=== PATIENT | female | born 1965 | race African-American/Black ===

== ENCOUNTER 2022-01-08 04:38 | Day surgery (SDC) | payer OTHER ==
[2022-01-04 19:18] VITALS: BMI 24.7
[2022-01-08] MEDS ORDERED: LIDOCAINE HCL 2% (20ML MULTI-DOSE VIAL) ONE ×2 (07:13→08:38)
[2022-01-08] MEDS ORDERED: BUPIVACAINE HCL/PF 0.5% (5MG/ML) 10 ML VIAL ONE (07:14)
[2022-01-08] MEDS ORDERED: DEXAMETHASONE SOD PHOSPHATE 4 MG/1 ML VIAL ONE ×2 (07:14→08:45)
[2022-01-08] MEDS ORDERED: MIDAZOLAM HCL 2 MG/2 ML SINGLE DOSE VIAL ONE (08:02)
[2022-01-08] MEDS ORDERED: LIDOCAINE HCL 2% (50ML VIAL) NR ONE (08:02)
[2022-01-08] MEDS ORDERED: BUPIVACAINE HCL/PF 0.5% (5MG/ML) 10 ML VIAL IJ ONE (08:02)
[2022-01-08] MEDS ORDERED: ceFAZolin SODIUM 1 GM VIAL IVPB ONE (08:05)
[2022-01-08] MEDS ORDERED: PROPOFOL 20 ML ONE ×2 (08:05→08:24)
[2022-01-08] MEDS ORDERED: DESFLURANE GAS 240 ML BOTTLE IH ONE (08:26)
[2022-01-08] MEDS ORDERED: SEVOFLURANE 250 ML BTL ONE (08:26)
[2022-01-08] MEDS ORDERED: DEXAMETHASONE SOD PHOSPHATE 4 MG/1 ML VIAL IVPUSH ONE (08:44)
[2022-01-08] MEDS ORDERED: ONDANSETRON 4 MG/2 ML VIAL IVPUSH PRN (09:19)
[2022-01-08] MEDS ORDERED: LACTATED RINGERS SOLUTION 1,000 ML IV SCH (09:30)
[2022-01-08 11:20] VITALS: PULSE 56; TEMP 97.8
[2022-01-08 13:07] VITALS: BP 150/80
== END 2022-01-08 13:08 | disposition home or self-care (01) ==
LOC: JASU-SURG 04:38
PROVIDERS: ATTEND Podiatrist
PROC: 0SRQ0JZ Replacement of Left Toe Phalangeal Joint with Synthetic Substitute, Open Approach (ICD-10-PCS; 2022-01-08)
PROC: 0SRP0JZ Replacement of Right Toe Phalangeal Joint with Synthetic Substitute, Open Approach (ICD-10-PCS; principal; 2022-01-08 07:30)
DX: M20.41 Other hammer toe(s) (acquired), right foot (principal); M20.42 Other hammer toe(s) (acquired), left foot
CPT/HCPCS: 73630-TC-LT; 73630-TC-RT-FY; 81025; 88304-TC; 88311-TC; 94760